=== PATIENT | female | born 1965 | race Caucasian/White ===

== ENCOUNTER 2018-01-20 13:37 | Emergency (ER) | payer OTHER ==
[~2018-01-20] VITALS: Ht 162.6 cm; Wt 72.0 kg
[2018-01-20 13:42] VITALS: Ht 162.6 cm; Wt 72.0 kg
--- NOTE | 2018-01-20 14:01 | EMERGENCY ROOM VISIT NOTE ---
History Report prepared by Tony: Jack Velasquez Under the Supervision of: Dr. Wilder Holt M.D. First contact with patient: 13:47 Chief Complaint: FLANK PAIN Stated Complaint: LOWER ABD AND BACK PAIN History of Present Illness The patient is a 52 year old female who presents to the Emergency Room with complaints of persistent right flank pain that started upon waking this morning around 5 and a half hours ago. The patient says that she felt fine when she went to bed last night other than left-sided flank pain that she has been dealing with for a while due to kidney stones. She states that the pain upon waking this morning was severe at an 8 out of 10, but the pain is now around a 4 out of 10. The patient says that when she first woke up, she noticed that she had trouble urinating. The patient states that she was able to urinate however and has been urinating fine ever since then. She says that she then went back to bed to see if the pain would go away, but the pain was still there when she woke up again. She states that she has been feeling clammy. The patient's states that the patient has a history of left-sided kidney stones, and had them "blasted" at [facility] twice, but they did not get all of the stone out. The patient has an appointment with Dr. Oakes next week. There were no kidney stones seen in the right kidney. The patient notes that her current symptoms are not similar to when she had the left sided kidney stone. The patient denies any fevers, nausea, or bowel movement issues. She adds that she has a family history of kidney stones. The patient is not currently on antibiotics. Source of History: patient, spouse/significant other Onset: 5 and a half hours ago Position: other (right flank) Symptom Intensity: at worst 8/10 Quality: other (pain) Timing: other (persistent) Associated Symptoms: + urinary symptoms, No fevers, No nausea Note: Associated symptoms: Denies bowel movement issues. Review of Systems See HPI for pertinent positives & negatives. A total of 10 systems reviewed and were otherwise negative. Past Medical & Surgical Medical Problems: (1) Depression (2) Kidney stones Family History FHx: gallbladder disease Kidney disease Social History Smoking Status: Never Smoker Drug Use: none Marital Status: Housing Status: lives with family Current/Historical Medications Scheduled Fluoxetine Hcl (Pmdd) (Fluoxetine), 20 MG PO QAM Tamsulosin Hcl (Flomax), 0.4 MG PO DAILY Scheduled PRN Oxycodone Ir (Roxicodone Ir), 1-2 TAB PO Q4H PRN for Pain Allergies Coded Allergies: No Known Allergies (Unverified , 01/20/18) Physical Exam Vital Signs Date Time Temp Pulse Resp B/P (MAP) Pulse Ox O2 Delivery O2 Flow Rate FiO2 01/20/18 15:53 36.5 55 16 139/80 98 01/20/18 15:38 55 16 139/80 98 Room Air 01/20/18 13:42 36.5 67 20 164/90 97 Room Air Physical Exam GENERAL: Patient is in no acute distress. HEENT: No acute trauma, normocephalic atraumatic, mucous membranes moist, no nasal congestion, no scleral icterus. NECK: No stridor, no adenopathy, no meningismus, trachea is midline. LUNGS: Clear to auscultation bilaterally, no wheeze, no rhonchi, breath sounds equal. HEART: Without murmurs gallops or rubs, regular rate and rhythm. ABDOMEN: Tender along the entire right side. Soft, bowel sounds positive, no hernias, no peritonitis. BACK: Right flank discomfort with percussion. EXTREMITIES: No cyanosis or edema, full range of motion of all the joints without pain or difficulty, no signs for acute trauma. NEUROLOGIC: Oriented x 3, no acute motor or sensory deficits, no focal weakness. SKIN: No rash, no jaundice, no diaphoresis. Medical Decision & Procedures ER Provider Diagnostic Interpretation: Radiology results as stated below per my review and radiologist interpretation: CHEST ONE VIEW PORTABLE HISTORY: 52 years-old Female FLANK PAIN/HEMATURIA acute bilateral flank pain with hematuria COMPARISON: None available TECHNIQUE: Portable AP view of the chest FINDINGS: Cardiomediastinal and hilar silhouettes are within normal limits. There is no pneumothorax, pleural effusion, focal airspace consolidation or overt pulmonary edema. The bones of the chest appear grossly intact. IMPRESSION: No acute process. The above report was generated using voice recognition software. It may contain grammatical, syntax or spelling errors. Electronically signed by: Carmelo Minor M.D. 01/20/2018 2:15 PM Dictated Date/Time: 01/20/2018 2:15 PM ABD/PELVIS WITHOUT FOR STONE HISTORY: 52 years-old Female EVALUATE FLANK PAIN/HEMATURIA acute right-sided flank pain with hematuria and history of kidney stones COMPARISON: None available TECHNIQUE: Multiple axial CT images of the abdomen and pelvis were obtained without the use of IV contrast. A dose lowering technique was used consistent with the principals of AMAYA. FINDINGS: Lung bases are generally clear. No pneumatosis or pneumoperitoneum. Imaged inferior cardiac chambers are unremarkable. Liver, gallbladder, spleen, pancreas and adrenal glands are unremarkable. Aorta is normal in course and caliber. No bulky adenopathy. Least 3 nonobstructing calculi are present on the left measuring up to 4 mm. 5 mm round calcification of the posterior aspect superior pole left kidney also noted. Mild nonspecific left-sided perinephric stranding. Ill-defined calcification involves anterior aspect of the inferior pole right kidney. Moderate right-sided hydroureteronephrosis with perinephric and periureteral inflammatory stranding secondary to a 5 x 2 x 4 mm calculus of the distal right ureter just proximal to the ureterovesicular junction. Increased size of the uterus with a 3.3 x 2.8 cm subserosal fibroid emanating from the left aspect of the lower uterine segment. There is suggested trace fluid within the endocervical canal. Follicular changes of the ovaries. No bowel obstruction or focal bowel wall thickening. Normal appendix. Soft tissues are unremarkable. Chronic pars defects at L5 with 8 mm anterolisthesis L5 on S1. IMPRESSION: 1. Moderate right-sided hydroureteronephrosis secondary to a 5 mm calculus of the distal right ureter just proximal to the ureterovesicular junction. Multiple nonobstructing left-sided renal calculi are also noted. 2. Fibroid uterus. 3. No bowel obstruction or focal bowel wall thickening. Normal appendix. The above report was generated using voice recognition software. It may contain grammatical, syntax or spelling errors. Electronically signed by: Carmelo Minor M.D. 01/20/2018 2:56 PM Dictated Date/Time: 01/20/2018 2:50 PM Laboratory Results 01/20/18 14:05 Red Blood Count 4.18, Mean Corpuscular Volume 94.5, Mean Corpuscular Hemoglobin 32.3, Mean Corpuscular Hemoglobin Concent 34.2, Mean Platelet Volume 10.0, Neutrophils (%) (Auto) 63.0, Lymphocytes (%) (Auto) 29.8, Monocytes (%) (Auto) 5.2, Eosinophils (%) (Auto) 1.3, Basophils (%) (Auto) 0.5, Neutrophils # (Auto) 4.00, Lymphocytes # (Auto) 1.89, Monocytes # (Auto) 0.33, Eosinophils # (Auto) 0.08, Basophils # (Auto) 0.03 01/20/18 14:05 Test 01/20/18 14:05 White Blood Count 6.34 K/uL (4.8-10.8) Red Blood Count 4.18 M/uL (4.2-5.4) Hemoglobin 13.5 g/dL (12.0-16.0) Hematocrit 39.5 % (37-47) Mean Corpuscular Volume 94.5 fL (80-100) Mean Corpuscular Hemoglobin 32.3 pg (25-34) Mean Corpuscular Hemoglobin Concent 34.2 g/dl (32-36) Platelet Count 251 K/uL (130-400) Mean Platelet Volume 10.0 fL (7.4-10.4) Neutrophils (%) (Auto) 63.0 % Lymphocytes (%) (Auto) 29.8 % Monocytes (%) (Auto) 5.2 % Eosinophils (%) (Auto) 1.3 % Basophils (%) (Auto) 0.5 % Neutrophils # (Auto) 4.00 K/uL (1.4-6.5) Lymphocytes # (Auto) 1.89 K/uL (1.2-3.4) Monocytes # (Auto) 0.33 K/uL (0.11-0.59) Eosinophils # (Auto) 0.08 K/uL (0-0.5) Basophils # (Auto) 0.03 K/uL (0-0.2) RDW Standard Deviation 45.2 fL (36.4-46.3) RDW Coefficient of Variation 13.0 % (11.5-14.5) Immature Granulocyte % (Auto) 0.2 % Immature Granulocyte # (Auto) 0.01 K/uL (0.00-0.02) Urine Color YELLOW Urine Appearance CLEAR (CLEAR) Urine pH 6.0 (4.5-7.5) Urine Specific Henrietta <= 1.005 (1.000-1.030) Urine Protein NEG (NEG) Urine Glucose (UA) NEG (NEG) Urine Ketones NEG (NEG) Urine Occult Blood 1+ (NEG) Urine Nitrite NEG (NEG) Urine Bilirubin NEG (NEG) Urine Urobilinogen NEG (NEG) Urine Leukocyte Esterase NEG (NEG) Urine RBC 0-4 /hpf (0-4) Urine WBC 5-10 /hpf (0-5) Urine Epithelial Cells 10-20 /lpf (0-5) Urine Bacteria 1+ (NEG) Anion Gap 6.0 mmol/L (3-11) Est Creatinine Clear Calc Drug Dose 78.0 ml/min Estimated GFR () 93.9 Estimated GFR (Non- 81.0 BUN/Creatinine Ratio 15.0 (10-20) Calcium Level 9.0 mg/dl (8.5-10.1) Total Bilirubin 0.4 mg/dl (0.2-1) Aspartate Amino Transf (AST/SGOT) 9 U/L (15-37) Alanine Aminotransferase (ALT/SGPT) 20 U/L (12-78) Alkaline Phosphatase 49 U/L (45-117) Total Protein 7.3 gm/dl (6.4-8.2) Albumin 4.0 gm/dl (3.4-5.0) Globulin 3.3 gm/dl (2.5-4.0) Albumin/Globulin Ratio 1.2 (0.9-2) Lipase 108 U/L (73-393) Laboratory results reviewed by me. Medications Administered Medications (Trade) Dose Ordered Sig/Kaylie Route Start Time Stop Time Status Last Admin Dose Admin Tamsulosin HCl (Flomax Cap) 0.4 mg NOW ONCE PO 01/20/18 15:45 01/20/18 15:46 DC 01/20/18 15:50 0.4 MG ED Course 1350: The patient was evaluated in room A9B. A complete history and physical exam was performed. 1511: I discussed the patient with [place] [facility] [place] - she says there is no reason that the patient cannot go home, and they will see the patient in follow-up as scheduled. 1539: Reevaluated the patient and she is resting comfortably. Discussed results and discharge instructions: she verbalized understanding and agreement. The patient is ready for discharge. 1545: Flomax Cap 0.4 mg PO. Medical Decision Differential diagnosis includes but is not limited to renal colic, UTI, pyelonephritis, hydronephrosis, biliary colic, appendicitis, diverticulitis, pancreatitis, musculoskeletal pain. There is no leukocytosis or concerning anemia. No significant electrolyte abnormality, kidney failure or hepatitis. Urinalysis does not show infection or significant hematuria. Chest film does not show pneumonia or CHF. Abdominal and pelvis CT shows a 5 mm stone in the right ureter causing hydronephrosis, the left ureter was clear. The patient presents with right flank pain, she appears to have a ureteral stone causing her discomfort. She is not toxic, she is not febrile. I did speak with urology. The patient will be discharged with a urine strainer, Flomax, oxycodone. She can return for fever, vomiting or uncontrolled pain. [place] Drug [place] Search Results: patient reviewed within database, no issues identified Drug Monitoring Findings: No matching records found. Medication Reconcilliation Current Medication List: was personally reviewed by me Blood Pressure Screening Patient's blood pressure: Elevated blood pressure Blood pressure disposition: Referred to PCP Consults Time Called: 1508 Consulting Physician: [facility] urology Returned Call: 1511 I discussed the patient with Karen [facility] urology - she says there is no reason that the patient cannot go home, and they will see the patient in follow-up as scheduled. Impression Primary Impression: Renal colic Additional Impression: Right flank pain Scribe Attestation The scribe's documentation has been prepared under my direction and personally reviewed by me in its entirety. I confirm that the note above accurately reflects all work, treatment, procedures, and medical decision making performed by me. Departure Information Dispostion Home / Self-Care Prescriptions Oxycodone Ir (Roxicodone Ir) 5 Mg Tab 1-2 TAB PO Q4H Y for Pain, #10 TAB Prov: Wilder Holt M.D. 01/20/18 Tamsulosin Hcl (FLOMAX) 0.4 Mg Cap 0.4 MG PO DAILY, #10 CAP Prov: Wilder Holt M.D. 01/20/18 Referrals Leonard Rosario M.D. (PCP) Patient Instructions My [facility] Additional Instructions tylenol or motrin for pain may use oxy ir 1 tab every 4 hours for more severe pain flomax daily to help pass the stone strain all the urine for the stone see urology as scheduled next week return for fever, vomiting or uncontrolled pain Problem Qualifiers
--- NOTE | 2018-01-20 14:16 | DIAGNOSTIC IMAGING REPORT ---
CHEST ONE VIEW PORTABLE HISTORY: 52 years-old Female FLANK PAIN/HEMATURIA acute bilateral flank pain with hematuria COMPARISON: None available TECHNIQUE: Portable AP view of the chest FINDINGS: Cardiomediastinal and hilar silhouettes are within normal limits. There is no pneumothorax, pleural effusion, focal airspace consolidation or overt pulmonary edema. The bones of the chest appear grossly intact. IMPRESSION: No acute process. The above report was generated using voice recognition software. It may contain grammatical, syntax or spelling errors. Electronically signed by: Carmelo Minor M.D. 01/20/2018 2:15 PM Dictated Date/Time: 01/20/2018 2:15 PM
[2018-01-20] MEDS ORDERED: FLUO20CA20 PO (14:19)
[2018-01-20 14:21] LABS: BASO % 0.5 %; BASO ABS # 0.03 K/uL (0-0.2); EOS % 1.3 %; EOS ABS # 0.08 K/uL (0-0.5); HEMATOCRIT 39.5 % (37-47); HEMOGLOBIN 13.5 g/dL (12.0-16.0); IG# 0.01 K/uL (0.00-0.02); LYMPH % 29.8 %; LYMPH ABS # 1.89 K/uL (1.2-3.4); MEAN CELL VOLUME 94.5 fL (80-100); MEAN CORPUSCULAR HEMOGLOBIN 32.3 pg (25-34); MEAN CORPUSCULAR HGB CONC 34.2 g/dl (32-36); MONO % 5.2 %; MONO ABS # 0.33 K/uL (0.11-0.59); PLATELET COUNT 251 K/uL (130-400); RED CELL DISTRIBUTION WIDTH SD 45.2 fL (36.4-46.3); WHITE BLOOD COUNT 6.34 K/uL (4.8-10.8)
[2018-01-20 14:37] LABS: CREATININE 0.84 mg/dl (0.60-1.20); POTASSIUM 4.1 mmol/L (3.5-5.1)
[2018-01-20 14:40] LABS: TOTAL PROTEIN 7.3 gm/dl (6.4-8.2)
--- NOTE | 2018-01-20 14:58 | DIAGNOSTIC IMAGING REPORT ---
ABD/PELVIS WITHOUT FOR STONE HISTORY: 52 years-old Female EVALUATE FLANK PAIN/HEMATURIA acute right-sided flank pain with hematuria and history of kidney stones COMPARISON: None available TECHNIQUE: Multiple axial CT images of the abdomen and pelvis were obtained without the use of IV contrast. A dose lowering technique was used consistent with the principals of AMAYA. FINDINGS: Lung bases are generally clear. No pneumatosis or pneumoperitoneum. Imaged inferior cardiac chambers are unremarkable. Liver, gallbladder, spleen, pancreas and adrenal glands are unremarkable. Aorta is normal in course and caliber. No bulky adenopathy. Least 3 nonobstructing calculi are present on the left measuring up to 4 mm. 5 mm round calcification of the posterior aspect superior pole left kidney also noted. Mild nonspecific left-sided perinephric stranding. Ill-defined calcification involves anterior aspect of the inferior pole right kidney. Moderate right-sided hydroureteronephrosis with perinephric and periureteral inflammatory stranding secondary to a 5 x 2 x 4 mm calculus of the distal right ureter just proximal to the ureterovesicular junction. Increased size of the uterus with a 3.3 x 2.8 cm subserosal fibroid emanating from the left aspect of the lower uterine segment. There is suggested trace fluid within the endocervical canal. Follicular changes of the ovaries. No bowel obstruction or focal bowel wall thickening. Normal appendix. Soft tissues are unremarkable. Chronic pars defects at L5 with 8 mm anterolisthesis L5 on S1. IMPRESSION: 1. Moderate right-sided hydroureteronephrosis secondary to a 5 mm calculus of the distal right ureter just proximal to the ureterovesicular junction. Multiple nonobstructing left-sided renal calculi are also noted. 2. Fibroid uterus. 3. No bowel obstruction or focal bowel wall thickening. Normal appendix. The above report was generated using voice recognition software. It may contain grammatical, syntax or spelling errors. Electronically signed by: Carmelo Minor M.D. 01/20/2018 2:56 PM Dictated Date/Time: 01/20/2018 2:50 PM
[2018-01-20] MEDS ORDERED: TAMSULOSIN HCL 0.4 MG CAP PO ONE (15:45)
[2018-01-20] MEDS ORDERED: TAMS0.4C38 PO (15:47)
[2018-01-20] MEDS ORDERED: OXYC1TAB3 PO (15:47)
[2018-01-20 15:53] VITALS: BP 139/80; PULSE 55; TEMP 36.5; O2SAT 98
== END 2018-01-20 15:51 | disposition home or self-care (01) ==
LOC: C.EDB 13:39 → C.EDA 15:51
DX: N23 Unspecified renal colic (principal); R10.9 Unspecified abdominal pain

== ENCOUNTER 2018-02-02 10:08 | Day surgery (SDC) | payer OTHER ==
[2018-02-01 10:40] VITALS: Ht 162.6 cm; Wt 71.4 kg
[~2018-02-02] VITALS: Ht 162.6 cm; Wt 71.4 kg
[~2018-02-02 10:08] MED LIST: CIPROFLOXACIN / D5W 400 MG IV SCH; FLM4 PO; FLUO20CA35 PO; LACTATED RINGER'S 1000ML 1,000 ML IV SCH; MELA5TAB18 PO; MULT-506 PO; OXYC1TAB3 PO; SACC250C11 PO
[2018-02-02 10:41] VITALS: BP 129/77; PULSE 67; TEMP 36.7; O2SAT 99
--- NOTE | 2018-02-02 13:47 | History & Physical Bridge Note ---
H&P Re-Evaluation Bridge Note: I have examined the patient, reviewed the History & Physical and in the interval since the performance of the History & Physical I have noted the following changes of clinical significance: No changes noted
[2018-02-02] MEDS ORDERED: Cysto-Conray II 17.2% 250ML BOTTLE ONE (13:56)
[2018-02-02] MEDS ORDERED: ONDANSETRON INJ 2 MG/ML 2 ML VIAL ONE (14:00)
[2018-02-02] MEDS ORDERED: PROPOFOL IV EMULSION 10 MG/ML 20 ML VIAL ONE (14:00)
[2018-02-02] MEDS ORDERED: MIDAZOLAM HCL 1 MG/ML 2ML VIAL ONE (14:00)
[2018-02-02] MEDS ORDERED: FENTANYL CITRATE INJ 50 MCG/1 ML 2 ML VIAL ONE (14:00)
[2018-02-02] MEDS ORDERED: LIDOCAINE HCL 2% 2 ML VIAL (20MG/ML) ONE (14:00)
[2018-02-02] MEDS ORDERED: DEXAMETHASONE SOD INJ 4 MG/ML VIAL ONE ×2 (14:00→14:44)
[2018-02-02] MEDS ORDERED: ATROPINE SULFATE 0.1 MG/ML 5ML SYR IV PRN (15:15)
[2018-02-02] MEDS ORDERED: ONDANSETRON INJ 2 MG/ML 2 ML VIAL IV PRN (15:15)
[2018-02-02] MEDS ORDERED: FENTANYL CITRATE INJ 50 MCG/1 ML 2 ML VIAL IV PRN (15:15)
[2018-02-02] MEDS ORDERED: LABETALOL HCL IV 5 MG/ML 20ML IV PRN (15:15)
[2018-02-02] MEDS ORDERED: FLUMAZENIL 0.1 MG/1 ML 10 ML VIAL IV PRN (15:15)
[2018-02-02] MEDS ORDERED: EpHEDrine SULFATE INJ 50 MG/ML AMP IV PRN (15:15)
[2018-02-02] MEDS ORDERED: PROMETHAZINE HCL INJ 12.5 MG in SODIUM CHLORIDE 0.9% 50ML 50 ML IV PRN (15:15)
[2018-02-02] MEDS ORDERED: NALOXONE HCL 0.4 MG/1 ML VIAL/CARP IV PRN (15:15)
[2018-02-02] MEDS ORDERED: KETOROLAC TROMETHAMINE 30 MG/ML VIAL ONE (15:18)
--- NOTE | 2018-02-02 15:21 | [facility] Operative Report ---
Operative Report Operative Date February 02, 2018. Pre-Operative Diagnosis Nephrolithiasis Post-Operative Diagnosis Nephrolithiasis Procedure(s) Performed Cystoscopy, Bilateral Ureteroscopy, Bilateral Laser Lithotripsy, Left Stent Insertion ([id number] with string) Surgeon Dr. Enrique Oakes Laundry Operator Surgeon(s) none Estimated Blood Loss 0 cc Findings distal right ureteral calc; left proximal ureteral calc plus renal stone x2 Specimens none per surgeon Drains stent Anesthesia Type General Complication(s) none Disposition yes Recovery Room / PACU Indications renal colic, bilateral ureteral obstruction Description of Procedure The patient was identified in the preoperative holding area, appropriate informed consents reviewed and completed and she was transported to the operating suite. Upon arrival she received appropriate preoperative antibiotics in the form of ciprofloxacin. Adequate general anesthesia was achieved, she was placed in dorsal lithotomy position where she was sterilely prepped and draped in standard fashion. I began the case by passing a 22 Syriac cystoscope with 30 lens. Inspection of the urethra revealed no abnormalities. Inspection of the bladder revealed slight erythema around the right ureteral orifice with slight mounding consistent with a distal right ureteral calculus. There was clear reflux bilaterally. There were no other mucosal abnormalities. I turned my attention to the right UO and cannulated with a 10 Syriac double-lumen catheter and a sensor wire. There was slight resistance in the extreme distal ureter. After the wire was advanced the kidney I withdrew the 10 Syriac double-lumen catheter and reentered the bladder with a semirigid ureteroscope. This was guided into the distal ureter. Inspection of the ureter revealed a yellow appearing calculus free-floating within the lumen of the ureter. I was able to pass a 400 m fiber and laser the stone to dust and irrigate the dust fragments out of the ureter. There is no ureteral trauma or irritation I elected to leave her without a stent. I then turned my attention to the left ureteral orifice which was cannulated with the same 10 Syriac double-lumen catheter and 2 sensor wires. After removing 10 Syriac double-lumen catheter advanced a flexible ureteroscope over one wire will reserving the other as a safety wire. Inspection revealed a left proximal ureteral calculus which was pushed retrograde into the kidney where I was able to treat it with a 400 m laser fiber. I additionally found to other small calculi within the kidney. There were no other stones identified. After successfully treating all the stones within the kidney, I performed a careful exit ureteroscopy revealing no large retained fragments. I then placed a 6 Syriac by 24 cm double-J ureteral stent with a string attached. There is good curl in the kidney as well as the bladder. The string was affixed to the inside of her right thigh. She was subsequently extubated and taken to the PACU in stable condition. There were no complications. She tolerated the procedure extremely well. I attest to the content of the Intraoperative Record and any orders documented therein. Any exceptions are noted below.
[2018-02-02] MEDS ORDERED: OXYC1TAB3 PO (15:26)
[2018-02-02] MEDS ORDERED: PHEN95TA14 PO (15:26)
[2018-02-02] MEDS ORDERED: CIPR-255 PO (15:26)
[2018-02-02] MEDS ORDERED: SODIUM CHLORIDE 0.9% 1000ML 1,000 ML IV SCH (15:29)
--- NOTE | 2018-02-02 15:29 | Discharge Instructions ---
Discharge Instructions Date of Service February 02, 2018. Admission Reason for Admission: Stones Discharge Discharge Diagnosis / Problem: stones Discharge Goals Goal(s): Decrease discomfort, Improve function, Increase independence, Improve disease control, Prevent Disease Progression Activity Recommendations Activity Limitations: resume your previous activity Lifting Limitations: none Exercise/Sports Limitations: none May Resume Sexual Activity: when tolerated Shower/Bathe: no limitations Driving or Machine Use: resume 1 day after discharge . Instructions / Follow-Up Instructions / Follow-Up Please come to Dr. Oakes's office on Thursday at 9:30 to have your stent removed. Current Hospital Diet Patient's current hospital diet: Discharge Diet Recommended Diet: Regular Diet Procedures Procedures Performed: Cystoscopy, Bilateral Ureteroscopy, Bilateral Laser Lithotripsy, Left Stent Insertion ([id number] with string) Pending Studies Studies pending at discharge: no Medical Emergencies . Who to Call and When: Medical Emergencies: If at any time you feel your situation is an emergency, please call 911 immediately. . Non-Emergent Contact Non-Emergency issues call your: Urologist Call Non-Emergent contact if: you have a fever, temperature is above 101.5, your pain is not controlled, your pain is worsening . . "Provider Documentation" section prepared by Judah Jane. . [place] Drug Monitoring [place] Search Results: patient reviewed within database, no issues identified
[2018-02-02] MEDS ORDERED: ACETAMINOPHEN 325 MG TAB PO PRN (15:30)
[2018-02-02] MEDS ORDERED: OXYCODONE/ACETAMINOPHEN 5-325 TAB PO PRN ×2 (15:30)
--- NOTE | 2018-02-02 15:51 | DIAGNOSTIC IMAGING REPORT ---
INTRAOPERATIVE RADIOGRAPHS CLINICAL HISTORY: Bilateral cystoscopy. Left-sided laser lithotripsy and ureteral stent placement. Fluoroscopy time: 9 seconds. FINDINGS: 3 spot fluoroscopic images of the abdomen are correlated with abdominal CT dated 01/20/2018. Initial image shows cannulation of the right ureter. The right distal ureteral calculus seen on 01/20/2018 is not clearly visualized. The second 2 images show cannulation of the left ureter. The final image shows a ureteral stent projecting over the left renal pelvis. IMPRESSION: Intraoperative images from bilateral cystoscopy and left ureter stent placement as above. See operative report for detailed findings. Electronically signed by: Wilder Nguyen M.D. 02/02/2018 3:50 PM Dictated Date/Time: 02/02/2018 3:48 PM
--- NOTE | 2018-02-02 16:12 | Anesthesiology Progress Note ---
Anesthesia Post Op Note Date & Time February 02, 2018 at 16:12 Vital Signs Pain Intensity: 0 Vital Signs Past 12 Hours Date Time Temp Pulse Resp B/P (MAP) Pulse Ox O2 Delivery O2 Flow Rate FiO2 02/02/18 16:05 37.7 58 16 129/87 95 Room Air 02/02/18 15:55 58 16 129/79 94 Room Air 02/02/18 15:45 54 16 130/84 100 10 02/02/18 15:35 59 16 126/86 100 10 02/02/18 15:27 36.4 66 16 137/91 100 10 02/02/18 10:41 36.7 67 20 129/77 (94) 99 Room Air Notes Mental Status: alert / awake / arousable, participated in evaluation Pt Amnestic to Procedure: Yes Nausea / Vomiting: adequately controlled Pain: adequately controlled Airway Patency, RR, SpO2: stable & adequate BP & HR: stable & adequate Hydration State: stable & adequate Anesthetic Complications: no major complications apparent
[2018-02-02 16:15] VITALS: BP 145/76; PULSE 61; TEMP 36.4; O2SAT 97
[2018-02-02 16:48] VITALS: BP 129/77; PULSE 63; TEMP 36.9; O2SAT 97
== END 2018-02-02 17:06 | disposition home or self-care (01) ==
LOC: C.ACU 10:08
PROVIDERS: ATTEND Urology
DX: N20.0 Calculus of kidney (principal); F32.9 Major depressive disorder, single episode, unspecified; Z84.1 Family history of disorders of kidney and ureter; Z88.1 Allergy status to other antibiotic agents

== ENCOUNTER → 2018-02-12 | Outpatient (CLI) | payer OTHER ==
[~2018-02-12] MED LIST changes: +CIPR-255 PO; -CIPROFLOXACIN / D5W 400 MG IV SCH; -FLM4 PO; -LACTATED RINGER'S 1000ML 1,000 ML IV SCH; +PHEN95TA14 PO
--- NOTE | 2018-02-12 14:08 | DIAGNOSTIC IMAGING REPORT ---
KUB HISTORY: Follow-up study in a patient with nephrolithiasis. Recent lithotripsy. Acute left flank pain. N20.0 Nephrolithiasis COMPARISON: Retrograde cystourethrogram with KUB 02/02/2018, CT 01/20/2018 FINDINGS: The bowel gas pattern is non-obstructive. There is no organomegaly. Left-sided nephrolithiasis redemonstrated measuring up to 2 mm. No definite right-sided nephrolithiasis. No ureteral calculi. Calcifications of the pelvis suggest phleboliths. No pneumoperitoneum or pneumatosis. No fracture. Degenerative changes of the pelvis and spine. IMPRESSION: Left-sided nephrolithiasis without ureteral calculi identified. Electronically signed by: Carmelo Minor M.D. 02/12/2018 2:07 PM Dictated Date/Time: 02/12/2018 2:05 PM
== END | disposition home or self-care (01) ==
LOC: C.RAD 13:34
PROVIDERS: ATTEND Urology
DX: N20.0 Calculus of kidney (principal); R10.9 Unspecified abdominal pain